=== PATIENT | female | born 1960 | race Caucasian/White ===

== ENCOUNTER → 2020-12-18 | Outpatient (CLI) | payer OTHER ==
[~2020-12-18] MED LIST: OMNIPAQUE 350 MG/ML, 100ML BOTTLE ONE
== END | disposition home or self-care (01) ==
LOC: RAD 12-03 12:57
PROVIDERS: ATTEND Internal Medicine
DX: C18.1 Malignant neoplasm of appendix (principal); J90 Pleural effusion, not elsewhere classified; J98.11 Atelectasis; E04.9 Nontoxic goiter, unspecified; M51.34 Other intervertebral disc degeneration, thoracic region; R16.1 Splenomegaly, not elsewhere classified; N13.30 Unspecified hydronephrosis; Q89.09 Congenital malformations of spleen
CPT/HCPCS: 71260; 74177; Q9967

== ENCOUNTER 2020-12-22 16:24 | Emergency (ER) | payer OTHER ==
[~2020-12-22] VITALS: Ht 170.2 cm; Wt 84.1 kg
[2020-12-22 16:43] VITALS: BP 147/64
--- NOTE | 2020-12-22 17:27 | NUR ---
PT TOLLERATED WATER AND AMBULATED TO RESTROOM WITH SPOUSE. PT AND SPOUSE FEEL SAFE TO DC HOME.
== END 2020-12-22 17:29 | disposition home or self-care (01) ==
LOC: ED 17:23
DX: F41.1 Generalized anxiety disorder (principal); R06.4 Hyperventilation
CPT/HCPCS: 99283

== ENCOUNTER → 2020-12-22 | Outpatient (CLI) | payer OTHER ==
[~2020-12-22] MED LIST changes: +LIDOCAINE 1%, 10ML ONE; -OMNIPAQUE 350 MG/ML, 100ML BOTTLE ONE
== END | disposition home or self-care (01) ==
LOC: RAD 14:36
PROVIDERS: ATTEND Internal Medicine
DX: R18.8 Other ascites (principal); C18.1 Malignant neoplasm of appendix
CPT/HCPCS: 49083; J3490